=== PATIENT | female | born 2000 | race Caucasian/White ===

== ENCOUNTER 2023-03-01 09:58 | Outpatient (CLI) | payer BC, MEDICAID | END 2023-03-01 09:59 | disposition home or self-care (01) | LOC: ULT 09:58 | PROVIDERS: ATTEND Advanced Practice Midwife | DX: N92.1 Excessive and frequent menstruation with irregular cycle (principal); T38.4X5A Adverse effect of oral contraceptives, initial encounter | CPT/HCPCS: 76856 ==